=== PATIENT | female | born 1950 | race Caucasian/White ===

== ENCOUNTER → 2017-09-22 12:03 | Outpatient (CLI) | payer MEDICARE, OTHER, SELFPAY ==
--- NOTE | 2017-09-22 | DI.MG.S_ITS ---
BILATERAL DIGITAL SCREENING MAMMOGRAM 3D/2D WITH CAD: 09/22/2017 CLINICAL: Routine screening. Family history of breast cancer. Comparison is made to exams dated: 08/20/2016 mammogram, 02/22/2014 mammogram, and 12/24/2011 mammogram - [facility]. There are scattered fibroglandular elements in both breasts. Current study was also evaluated with a Computer Aided Detection (CAD) system. There is a biopsy clip in the right breast. No significant masses, calcifications, or other findings are seen in either breast. There has been no significant interval change. IMPRESSION: NEGATIVE There is no mammographic evidence of malignancy. A 1 year screening mammogram is recommended. This exam was interpreted at Station ID: [id number]. NOTE: For mammograms, a report in lay terms will be sent to the patient. Approximately 15% of breast malignancies will not be visualized mammographically. In the management of a palpable breast mass, a negative mammogram must not discourage biopsy of a clinically suspicious lesion. Electronically Signed By: Ras dubois/joanne:09/23/2017 20:25:00 copy to: Patricio Carreno letter sent: Normal Exam ACR BI-RADS Category 1: Negative 3341F
== END ==
PROVIDERS: PCP Family Medicine; Visit Provider Family Medicine
DX: Z12.31 Encounter for screening mammogram for malignant neoplasm of breast (principal); Z80.3 Family history of malignant neoplasm of breast
CPT/HCPCS: 77063; 77067

== ENCOUNTER → 2018-08-04 14:52 | Outpatient (ROUT) | payer MEDICARE, OTHER, SELFPAY ==
[2018-08-04 15:19] LABS: Influenza A and B by PCR Rapid Negative (Negative)
== END ==
PROVIDERS: PCP Family Medicine; Visit Provider Family Medicine
DX: R50.9 Fever, unspecified (principal)
CPT/HCPCS: 87400

== ENCOUNTER 2018-09-20 19:46 | Emergency (ER) | payer MEDICARE, OTHER, SELFPAY ==
--- NOTE | 2018-09-20 19:54 | DI.RAD.S_ITS ---
PROCEDURE: XR CHEST 1V INDICATIONS: chest heaviness/palpatations TECHNIQUE: One view of the chest was acquired. COMPARISON: None. FINDINGS: Surgical changes and devices: None. Lungs and pleura: Lungs are clear. No pleural effusions or pneumothorax. Mediastinum: Mediastinal contours appear normal. Heart size is normal. Bones and chest wall: No suspicious bony lesions. Overlying soft tissues appear unremarkable. IMPRESSION: No acute cardiopulmonary findings. Dictated by: Abbie Dotson M.D. on 09/20/2018 at 19:51 Approved by: Abbie Dotson M.D. on 09/20/2018 at 19:51
[2018-09-20 20:20] VITALS: BP 132/76; PULSE 68; RESP 15; O2SAT 97
[2018-09-20 20:26] LABS: Add Manual Diff / Slide Review NO; Basophils Absolute Auto 0 /uL (0-100); Basophils Percent Auto 0.3 % (0-2); Eosinophils Absolute Auto 300 /uL (0-450); Eosinophils Percent Auto 3.7 % (2-4); Hematocrit 39.5 % (36-46); Hemoglobin 13.2 g/dL (12.0-16.0); Lymphocytes Absolute Auto 2100 /uL (1100-4500); Lymphocytes Percent Auto 28.2 % (25-40); Mean Corpuscular HGB Conc 33.4 % (30-36); Mean Corpuscular Hemoglobin 30.7 PG (26-34); Mean Corpuscular Volume 91.7 fL (80-100); Monocytes Absolute Auto 600 /uL (0-900); Monocytes Percent Auto 7.9 % (3-14); Neutrophils Absolute Auto 4400 /uL (1500-7000); Neutrophils Percent Auto 59.9 % (50-75); Platelet Count 236 X10^3/uL (150-400); Red Blood Cell Count 4.31 X10^6/uL (4.0-5.2); Red Cell Distribution Width 14.1 % (11.6-14.8); White Blood Cell Count 7.3 X10^3/uL (4.5-11.0)
[2018-09-20 20:35] LABS: Alanine Aminotransferase 15 IU/L (9-52); Albumin 3.9 g/dL (3.5-5.0); Albumin Globulin Ratio 1.4 (1.0-2.8); Alkaline Phosphatase 71 U/L (38-126); Aspartate Aminotransferase 21 IU/L (14-36); BUN Creatinine Ratio 31.3 (6-22); Bilirubin Total 0.7 mg/dL (0.2-1.3); Blood Urea Nitrogen 25 mg/dL (7-17); Calcium 9.1 mg/dL (8.4-10.2); Carbon Dioxide 30 mmol/L (22-32); Chloride 100 mmol/L (98-107); Creatine Kinase 85 U/L (30-135); Estimated Glomerular Filt Rate > 60.0 mL/min (>60); Globulin 2.7 g/dL (1.7-4.1); Glucose 157 mg/dL (80-110); HEMOLYSIS < 15 (0-50); Potassium 3.7 mmol/L (3.4-5.1); Sodium 137 mmol/L (137-145); Total Protein 6.6 g/dL (6.3-8.2)
[2018-09-20] MEDS: ASPIRIN 81 MG TAB 324 MG PO (20:41)
--- NOTE | 2018-09-20 20:41 | ED.CHESTPAIN ---
HPI - Chest Pain General Chief Complaint: Chest Pain Stated Complaint: IRREGULAR HEARTRATE Time Seen by Provider: 09/20/18 19:50 Source: patient and family Mode of arrival: ambulatory Limitations: no limitations History of Present Illness HPI narrative: 67-year-old female nonsmoker with benign medical history presents with a chief complaint of waxing waning episodes of anterior chest pressure for the past 3-4 days. She states it is pressure-like and moderate in intensity. She denies any radiation of her discomfort. Her symptoms worsened when he lays flat improves when she stands up. 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 She denies any history of blood clot, cancer, recent travel surgery or injury. MD complaint: chest pain Onset (ago): day(s) Duration: intermittent Pain location: substernal Severity: mild Quality: aching Pain radiation: none Relieving factors: leaning forward Exacerbating factors: supine Context: recent illness Treatments prior to arrival chest pain: none Related Data On Oral Contraceptives: No Home Medications Medication Instructions Recorded Confirmed MULTIVITAMIN (#DUO-KAPS) 1 cap PO #0 12/17/11 Previous Rx's Medication Instructions Recorded oxyquinoline-sod.lauryl sulfat 1 % VAGINAL 3 TIMES A WEEK #1 tube 08/03/16 [Trimo-Manzano Jellpraveen] Allergies Allergy/AdvReac Type Severity Reaction Status Date / Time No Known Drug Allergies Allergy Unverified 10/14/17 08:06 Review of Systems Constitutional Denies chills, Denies fever(s), Denies lethargy and Denies weakness Eyes Denies change in vision, Denies eye discharge, Denies irritation and Denies loss of vision ENT Ears, Nose, Mouth, and Throat: Denies change in voice, Denies neck pain and Denies sore throat Cardiovascular Reports chest pain, Denies irregular heart rhythm, Denies lightheadedness, Denies palpitations, Denies dyspnea, Denies dyspnea on exertion and Denies orthopnea Respiratory Denies cough, Denies dyspnea, Denies dyspnea on exertion and Denies wheezing Gastrointestinal Gastrointestinal: Denies abdominal pain, Denies change in bowel habits, Denies diarrhea, Denies nausea and Denies vomiting Genitourinary Denies hematuria, Denies flank pain, Denies urinary incontinence and Denies urinary urgency Musculoskeletal Denies neck pain Integumentary/Breasts Denies pruritus, Denies erythema, Denies rash and Denies wounds Neurologic Denies confusion, Denies loss of vision and Denies weakness Psychiatric Denies anxiety, Denies confusion, Denies depression, Denies homicidal ideation and Denies suicidal ideation Endocrine Denies palpitations Hematologic/Lymphatic Denies easy bruising Allergic/Immunologic Denies wheezing PFSH Social History Smoking Status: Never smoker Social History Smoking Status: Never smoker Exam Narrative Exam Narrative: GENERAL: 67F appears younger than stated age, in no significant distress HEAD: Atraumatic. Normocephalic. No temporal or scalp tenderness. EYES: Pupils equal round and reactive. Extraocular motions intact. No scleral icterus. No injection or drainage. ENT: Nose without bleeding, purulent drainage or septal hematoma. Throat without erythema, tonsillar hypertrophy or exudate. Uvula midline. Airway patent. NECK: Trachea midline. No JVD or lymphadenopathy. Supple, nontender, no meningeal signs. CARDIOVASCULAR: Regular rate and rhythm without murmurs, gallops, or rubs. RESPIRATORY: Clear to auscultation. Breath sounds equal bilaterally. No wheezes, rales, or rhonchi. GASTROINTESTINAL: Abdomen soft, non-tender, nondistended. No hepato-splenomegaly, or palpable masses. No guarding. EXTREMITIES: No clubbing, cyanosis, or edema. No joint tenderness, effusion, or edema noted. BACK: Nontender without deformity or crepitance. No flank tenderness. NEURO: AOx3. SKIN: No rash or erythema. Initial Vital Signs Initial Vital Signs: Vital Signs Pulse Rate 68 09/20/18 20:20 Respiratory Rate 15 09/20/18 20:20 Blood Pressure 132/76 09/20/18 20:20 Pulse Oximetry 97 09/20/18 20:20 Course Orders Ordered: ED Orders 09/20/18 19:54 XR chest 1V Stat EKG-12 Lead Stat 09/20/18 20:10 Complete Blood Count AUTO DIFF Stat Comprehensive Metabolic Panel Stat Troponin & CK Cardiac Panel Stat Discontinued Medications Aspirin (Aspirin Chew) 324 mg PO NOW ONE Stop: 09/20/18 20:34 Last Admin: 09/20/18 20:41 Dose: 324 mg Vital Signs - 8 hr 09/20/18 21:30 Pulse Rate 70 Respiratory Rate 17 Blood Pressure [Left Arm] 125/75 Pulse Oximetry 98 MDM - Chest Pain Lab Data Result diagrams: 09/20/18 20:10 09/20/18 20:10 Lab Results 09/20/18 09/20/18 Range/Units 20:10 20:10 WBC 7.3 (4.5-11.0) X10^3/uL RBC 4.31 (4.0-5.2) X10^6/uL Hgb 13.2 (12.0-16.0) g/dL Hct 39.5 (36-46) % MCV 91.7 (80-100) fL MCH 30.7 (26-34) PG MCHC 33.4 (30-36) % RDW 14.1 (11.6-14.8) % Plt Count 236 (150-400) X10^3/uL Neut % (Auto) 59.9 (50-75) % Lymph % (Auto) 28.2 (25-40) % [place] % (Auto) 7.9 (3-14) % Eos % (Auto) 3.7 (2-4) % Baso % (Auto) 0.3 (0-2) % Neut # (Auto) 4400 (6099-7084) /uL Lymph # (Auto) 2100 (4202-6300) /uL [place] # (Auto) 600 (0-900) /uL Eos # (Auto) 300 (0-450) /uL Baso # (Auto) 0 (0-100) /uL Sodium 137 (137-145) mmol/L Potassium 3.7 (3.4-5.1) mmol/L Chloride 100 (98-107) mmol/L Carbon Dioxide 30 (22-32) mmol/L BUN 25 H (7-17) mg/dL Creatinine 0.80 (0.52-1.04) mg/dL Estimated GFR > 60.0 (>60) mL/min BUN/Creatinine Ratio 31.3 H (6-22) Glucose 157 H (80-110) mg/dL Calcium 9.1 (8.4-10.2) mg/dL Total Bilirubin 0.7 (0.2-1.3) mg/dL AST 21 (14-36) IU/L ALT 15 (9-52) IU/L Alkaline Phosphatase 71 (38-126) U/L Total Creatine Kinase 85 (30-135) U/L CK-MB (CK-2) TNP CK-MB (CK-2) Rel Index TNP Troponin I < 0.012 (0.01-0.034) ng/mL Total Protein 6.6 (6.3-8.2) g/dL Albumin 3.9 (3.5-5.0) g/dL Globulin 2.7 (1.7-4.1) g/dL Albumin/Globulin Ratio 1.4 (1.0-2.8) Discharge Plan Departure Patient Disposition: Home Clinical Impression: Atypical chest pain Discharge Date/Time: 09/20/18 22:10 Interventions: ED Discharge Assessment Last Done: 09/20/18 22:08 Instructions: DI for Atypical Chest Pain Activity Restrictions/Additional Instructions: *You have been diagnosed with [atypical chest pain. EKG blood work and story are not consistent with cardiac disease] *What to do: *Take medications as directed *Follow up with your primary care provider in 2-3 days, call for an appointment. Let them know you were seen in the Emergency Department and that we ask that you be seen in follow up *Return to ER if you should have any new, worsening or concerning symptoms Prescriptions: No Action MULTIVITAMIN (#DUO-KAPS) 1 cap PO Qty: 0 RF: 0 oxyquinoline-sod.lauryl sulfat [Trimo-Manzano Jelly] 113.4 GM gel 1 % Vaginal 3 TIMES A WEEK Qty: 1 RF: 0 Referrals: Patricio Carreno MD [Primary Care Provider] -
[2018-09-20 20:46] LABS: Troponin I < 0.012 ng/mL (0.01-0.034)
[2018-09-20 21:30] VITALS: BP 125/75; PULSE 70; RESP 17; O2SAT 98
== END 2018-09-20 22:10 | disposition home or self-care (01) ==
PROVIDERS: Emergency Provider Emergency Medicine; PCP Family Medicine
DX: R07.89 Other chest pain (principal)
CPT/HCPCS: 36591; 71045; 80053; 82550; 84484; 85025; 93005; 99282; 99285

== ENCOUNTER → 2018-09-26 10:21 | Outpatient (CLI) | payer MEDICARE, OTHER, SELFPAY ==
--- NOTE | 2018-09-26 | DI.MG.S_ITS ---
BILATERAL DIGITAL SCREENING MAMMOGRAM 3D/2D WITH CAD: 09/26/2018 CLINICAL: Routine screening. Family history of breast cancer. Comparison is made to exams dated: 09/22/2017 mammogram, 08/20/2016 mammogram, and 02/22/2014 mammogram - [facility]. There are scattered fibroglandular elements in both breasts. Current study was also evaluated with a Computer Aided Detection (CAD) system. There are a grouped heterogeneous calcifications in the right breast at 12 o'clock anterior depth. No other significant masses, calcifications, or other findings are seen in either breast. IMPRESSION: INCOMPLETE: NEEDS ADDITIONAL IMAGING EVALUATION The grouped heterogeneous calcifications in the right breast are indeterminate. Additional views are recommended. This exam was interpreted at Station ID: [id number]. NOTE: For mammograms, a report in lay terms will be sent to the patient. Approximately 15% of breast malignancies will not be visualized mammographically. In the management of a palpable breast mass, a negative mammogram must not discourage biopsy of a clinically suspicious lesion. Electronically Signed By: Heydi levy/joanne:09/26/2018 12:48:13 letter sent: Additional Imaging Needed ACR BI-RADS Category 0: Incomplete 3340F
== END ==
PROVIDERS: PCP Family Medicine; Visit Provider Family Medicine
DX: Z12.31 Encounter for screening mammogram for malignant neoplasm of breast (principal); Z80.3 Family history of malignant neoplasm of breast; R92.8 Other abnormal and inconclusive findings on diagnostic imaging of breast
CPT/HCPCS: 77063; 77067

== ENCOUNTER → 2018-10-12 14:40 | Outpatient (CLI) | payer MEDICARE, OTHER, SELFPAY ==
--- NOTE | 2018-10-12 14:43 | DI.US.S_ITS ---
LIMITED ULTRASOUND OF RIGHT BREAST: 10/12/2018 CLINICAL: Additional evaluation requested from prior study. Comparison is made to exams dated: 10/12/2018 mammogram, 09/26/2018 mammogram, 09/22/2017 mammogram, 08/20/2016 mammogram, and 02/22/2014 mammogram - [facility]. Color flow and real-time ultrasound of the right breast 10-12 o'clock region were performed. Pinon scale images of the real-time examination were reviewed. There is a 1.2 x 0.8 x 0.6 cm oval indistinct hypoechoic mass with internal echogenic foci consistent with calcifications in the right breast at 11:00 position 3 cm from the nipple. This mass demonstrates peripheral vascularity but no internal vascularity on Doppler ultrasound. This appears to correlate with the calcifications seen on comparison exam. There is mild diffuse retroareolar ductal ectasia, without focal ectasia or intraluminal mass. Targeted ultrasound of the right axilla demonstrates no right axillary lymphadenopathy. IMPRESSION: SUSPICIOUS OF MALIGNANCY 1) 1.2 x 0.8 x 0.6 cm oval indistinct hypoechoic mass in the right breast at 11:00 position 3 cm from the nipple is at low suspicion for malignancy. An ultrasound guided biopsy is recommended. 2) Targeted ultrasound of the right axilla demonstrates no right axillary lymphadenopathy. These results and recommendations were discussed with the patient at the time of the exam by the [facility] Radiologist Dr. Chris Kelly in person. This exam was interpreted at Station ID: [id number]. Electronically Signed By: Scotty Haile M.D. ecl/:10/12/2018 16:01:13 letter sent: Biopsy Required Ultrasound BI-RADS: 4a Suspicious abnormality - low suspicion for malignancy
--- NOTE | 2018-10-12 14:43 | DI.MG.S_ITS ---
UNILATERAL RIGHT DIGITAL DIAGNOSTIC MAMMOGRAM 3D/2D WITH ADDITIONAL VIEWS: 10/12/2018 CLINICAL: Additional evaluation requested from prior study. Comparison is made to exams dated: 09/26/2018 mammogram, 09/22/2017 mammogram, and 08/20/2016 mammogram - [facility]. The tissue of right breast is heterogeneously dense. This may lower the sensitivity of mammography. Previously identified grouped heterogeneous calcifications in the right breast at 12 o'clock anterior depth described on comparison diagnostic mammogram of 09/26/18 localizes closer to 11 o'clock position anterior depth. These measure 1.3 x 0.8 x 0.8 cm in greatest extent. A majority of these calcifications appear stable to comparison exam of 02/22/19, and appear to be present with an island of fibroglandular tissue. IMPRESSION: INCOMPLETE: NEEDS ADDITIONAL IMAGING EVALUATION Previously identified grouped heterogeneous calcifications in the right breast at 12 o'clock anterior depth described on comparison diagnostic mammogram of 09/26/18 localizes closer to 11 o'clock position anterior depth. These measure 1.3 x 0.8 x 0.8 cm in greatest extent. A majority of these calcifications appear stable to comparison exam of 02/22/19, and appear to be present with an island of fibroglandular tissue. A targeted ultrasound is recommended for further evaluation. This exam was interpreted at Station ID: [id number]. NOTE: For mammograms, a report in lay terms will be sent to the patient. Approximately 15% of breast malignancies will not be visualized mammographically. In the management of a palpable breast mass, a negative mammogram must not discourage biopsy of a clinically suspicious lesion. Electronically Signed By: Scotty Haile M.D. ecl/:10/12/2018 15:50:11 ACR BI-RADS Category 0: Incomplete 3340F
== END ==
PROVIDERS: Family Provider Family Medicine; PCP Family Medicine
DX: R92.8 Other abnormal and inconclusive findings on diagnostic imaging of breast (principal); R92.1 Mammographic calcification found on diagnostic imaging of breast; N63.11 Unspecified lump in the right breast, upper outer quadrant
CPT/HCPCS: 76642; 77065; G0279

== ENCOUNTER → 2018-11-02 09:10 | Outpatient (CLI) | payer MEDICARE, OTHER, SELFPAY ==
--- NOTE | 2018-11-02 | PATH_ITS ---
[facility] Accession Number: [id number] . 01 Material submitted: . breast - RIGHT BREAST MASS . 01 Clinical history: . RIGHT BREAST MASS . 01 Diagnosis: Right Breast Mass, Biopsy: Blood and breast parenchyma with stromal fibrosis and fibroadenomatoid change with associated microcalcifications. Background breast with rare microcysts and apocrine metaplasia. Focal calcifications within the media of vessels are also present. Negative for atypia, carcinoma in situ, and invasive malignancy. MRV/11/06/2018 . 01 Electronically signed: . Dayana Bella MD, Pathologist NPI- [id number] . 01 Gross description: . Received one formalin-filled container labeled with the patient's name and labeled RT breast. The specimen is received with a plastic filter in container, sample loose in container and consists of multiple fragments of yellow-aquino tissue and blood which measure 1.0 x 1.0 x 0.5 cm in aggregate. The specimen is filtered, wrapped, and entirely submitted in one cassette. Collection time and date per container: 11-02-18 at 10:53 a.m. Total fixation time: 12 hours, up to 24. ([id number]) /FRR . 01 Microscopic: . Deeper levels examined. . 01 Pathologist provided ICD-10: N63.10 . 01 CPT . 885244 [facility]formed at: [facility] [address] [place] [address], [place], [place] [id number] MD Ihsan Henry MD Phone: [phone]
--- NOTE | 2018-11-02 | DI.MG.S_ITS ---
UNILATERAL RIGHT DIGITAL DIAGNOSTIC MAMMOGRAM POST-NEEDLE BIOPSY: 11/02/2018 CLINICAL: Right breast mass. Comparison is made to exams dated: 10/12/2018 mammogram, 09/26/2018 mammogram, and 09/22/2017 mammogram - [facility]. The tissue of right breast is heterogeneously dense. This may lower the sensitivity of mammography. There is a biopsy clip in the right breast at the biopsy site. IMPRESSION: POST PROCEDURE MAMMOGRAM FOR MARKER PLACEMENT A biopsy clip in the right breast at the biopsy site. This exam was interpreted at Station ID: [id number]. NOTE: For mammograms, a report in lay terms will be sent to the patient. Approximately 15% of breast malignancies will not be visualized mammographically. In the management of a palpable breast mass, a negative mammogram must not discourage biopsy of a clinically suspicious lesion. Electronically Signed By: Irais Wilson M.D. fx/:11/03/2018 10:02:10 Entry: cm - 11/03/2018 10:02:10 ACR BI-RADS Category Post-procedure mammogram for marker placement
--- NOTE | 2018-11-02 09:13 | DI.US.S_ITS ---
ULTRASOUND GUIDED BIOPSY RIGHT BREAST USING VACUUM DEVICE WITH POST MAMMOGRAPHIC AND ULTRASOUND IMAGIN11/02/2018 CLINICAL: Right breast mass. PATIENT CONSENT: Risks (minor bleeding, infection, vasovagal reaction and repeat procedure), benefits and alternatives were explained to the patient and written informed consent was obtained. Correlation is made to exams dated: 11/02/2018 mammogram, 10/12/2018 ultrasound, 10/12/2018 mammogram, 09/26/2018 mammogram, 09/22/2017 mammogram, and 08/20/2016 mammogram - [facility]. An ultrasound guided biopsy using real-time ultrasound was performed for the oval mass located in the right breast at 12 o'clock middle depth. This was described on the previous ultrasound report. The skin was prepped in the usual manner. Local anesthetic was administered to the access site. The abnormality was approached from the lateral aspect. A 13 gauge biopsy needle was placed adjacent to the abnormality under ultrasound guidance. Once the needle was documented to be in the correct location, five specimens were obtained using the Mammotome biopsy system. Post procedure mammographic and ultrasound imaging demonstrates the clip at the targeted area. The specimens were sent to the laboratory for pathological analysis. IMPRESSION: ULTRASOUND GUIDED BIOPSY BENIGN Ultrasound guided biopsy of the mass in the right breast middle depth was successful. Pathology indicates benign fibroadenomatoid change, and stromal fibrosis with calcifications and no atypia present. Background breast wit mild apocrine metaplasia (AM), and rare microcysts. Pathology results are concordant with imaging findings. Return to annual mammogram screening schedule is recommended. This exam was interpreted at Station ID: [id number]. Irais Luke M.D. fx,aty/:11/07/2018 19:21:13
== END ==
PROVIDERS: PCP Family Medicine
DX: N60.31 Fibrosclerosis of right breast (principal); N60.81 Other benign mammary dysplasias of right breast
CPT/HCPCS: 19083; 77065

== ENCOUNTER → 2019-01-05 09:12 | Outpatient (CLI) | payer MEDICARE, OTHER, SELFPAY ==
[2019-01-05 09:58] LABS: Add Manual Diff / Slide Review NO; Basophils Absolute Auto 100 /uL (0-100); Basophils Percent Auto 1.3 % (0-2); Eosinophils Absolute Auto 200 /uL (0-450); Eosinophils Percent Auto 4.1 % (2-4); Hematocrit 41.6 % (36-46); Hemoglobin 13.9 g/dL (12.0-16.0); Lymphocytes Absolute Auto 1900 /uL (1100-4500); Lymphocytes Percent Auto 34.6 % (25-40); Mean Corpuscular HGB Conc 33.5 % (30-36); Mean Corpuscular Hemoglobin 30.6 PG (26-34); Mean Corpuscular Volume 91.5 fL (80-100); Monocytes Absolute Auto 600 /uL (0-900); Monocytes Percent Auto 10.2 % (3-14); Neutrophils Absolute Auto 2800 /uL (1500-7000); Neutrophils Percent Auto 49.8 % (50-75); Platelet Count 254 X10^3/uL (150-400); Red Blood Cell Count 4.54 X10^6/uL (4.0-5.2); Red Cell Distribution Width 13.4 % (11.6-14.8); White Blood Cell Count 5.6 X10^3/uL (4.5-11.0)
[2019-01-05 10:31] LABS: BUN Creatinine Ratio 27.1 (6-22); Blood Urea Nitrogen 19 mg/dL (7-17); Calcium 9.4 mg/dL (8.4-10.2); Carbon Dioxide 34 mmol/L (22-32); Chloride 99 mmol/L (98-107); Cholesterol 154 mg/dL (140-199); Estimated Glomerular Filt Rate > 60.0 mL/min (>60); Glucose 90 mg/dL (80-110); HDL Cholesterol 51 mg/dL (40-60); HEMOLYSIS < 15 (0-50); LDL Cholesterol Calculated 83 mg/dL (<100); Magnesium 2.2 mg/dL (1.6-2.3); Potassium 4.3 mmol/L (3.4-5.1); Sodium 138 mmol/L (137-145); Triglycerides 101 mg/dL (35-150)
== END ==
PROVIDERS: PCP Family Medicine; Visit Provider Internal Medicine Cardiovascular Disease
DX: Z00.00 Encounter for general adult medical examination without abnormal findings (principal); I49.3 Ventricular premature depolarization; R07.9 Chest pain, unspecified
CPT/HCPCS: 36415; 80048; 80061; 83735; 85025

== ENCOUNTER → 2019-11-19 12:37 | Outpatient (CLI) | payer MEDICARE, OTHER, SELFPAY | PROVIDERS: PCP Family Medicine | DX: Z13.820 Encounter for screening for osteoporosis (principal); M85.851 Other specified disorders of bone density and structure, right thigh; Z78.0 Asymptomatic menopausal state | CPT/HCPCS: 77080 ==

== ENCOUNTER → 2019-11-30 08:09 | Outpatient (CLI) | payer MEDICARE, OTHER, SELFPAY ==
--- NOTE | 2019-11-30 08:11 | DI.MG.S_ITS ---
BILATERAL DIGITAL SCREENING MAMMOGRAM 3D/2D WITH CAD: 11/30/2019 CLINICAL: Routine screening. Family history of breast cancer. Comparison is made to exams dated: 09/26/2018 mammogram, 09/22/2017 mammogram, and 08/20/2016 mammogram - [facility]. The tissue of both breasts is heterogeneously dense. This may lower the sensitivity of mammography. Current study was also evaluated with a Computer Aided Detection (CAD) system. There are benign vascular calcifications in both breasts. No significant masses, calcifications, or other findings are seen in either breast. There has been no significant interval change. IMPRESSION: BENIGN There is no mammographic evidence of malignancy. A 1 year screening mammogram is recommended. This exam was interpreted at Station ID: [id number]. NOTE: For mammograms, a report in lay terms will be sent to the patient. Approximately 15% of breast malignancies will not be visualized mammographically. In the management of a palpable breast mass, a negative mammogram must not discourage biopsy of a clinically suspicious lesion. Electronically Signed By: Abbie buchanan/joanne:11/30/2019 10:12:18 copy to: SHARON DALE letter sent: Normal Exam ACR BI-RADS Category 2: Benign Finding(s) 3342F
== END ==
PROVIDERS: PCP Family Medicine
DX: Z12.31 Encounter for screening mammogram for malignant neoplasm of breast (principal); Z80.3 Family history of malignant neoplasm of breast
CPT/HCPCS: 77063; 77067

== ENCOUNTER → 2020-04-02 17:17 | Outpatient (CLI) | payer MEDICARE, OTHER, SELFPAY ==
--- NOTE | 2020-04-02 17:23 | DI.RAD.S_ITS ---
PROCEDURE: XR KNEE RT 3V INDICATIONS: RIGHT KNEE PAIN TECHNIQUE: 3 views of the knee were acquired. COMPARISON: None. FINDINGS: Bones: No fractures or dislocations. Mild tricompartmental osteoarthritis is seen. No suspicious bony lesions. Soft tissues: Small to moderate suprapatellar joint effusion is seen. No suspicious soft tissue calcifications. IMPRESSION: No acute right knee fracture or dislocation. Mild tricompartmental osteoarthritis. Small to moderate suprapatellar joint effusion. Dictated by: Jose Raul Barcenas M.D. on 04/02/2020 at 17:42 Approved by: Jsoe Raul Barcenas M.D. on 04/02/2020 at 17:43
== END ==
PROVIDERS: Referring Provider Family Medicine; Visit Provider Family Medicine
DX: M25.561 Pain in right knee (principal); M17.11 Unilateral primary osteoarthritis, right knee; M25.461 Effusion, right knee
CPT/HCPCS: 73562

== ENCOUNTER → 2020-05-16 17:19 | Outpatient (CLI) | payer MEDICARE, OTHER, SELFPAY ==
--- NOTE | 2020-05-16 | DI.MRI.S_ITS ---
PROCEDURE: MR KNEE RT WO CON INDICATIONS: Unspecified internal derangement of right knee TECHNIQUE: Noncontrast sagittal PD fast spin echo and T2 fast spin echo with fat saturation, sagittal 3-D FLASH with fat saturation; coronal T1 spin echo and PD fast spin echo with fat saturation, and axial PD fast spin echo with fat saturation through the knee. COMPARISON: [facility] [place], CR, XR KNEE STANDING BILATERAL, 05/07/2020, 15:53. FINDINGS: Image quality: There is inhomogeneous fat saturation. Menisci: There is degenerative signal within the posterior horn of the medial meniscus with complex tearing including irregular radial tearing along the free edge as well as a horizontally oriented longitudinal tear involving the inferior articular surface. There is intrasubstance extension of the longitudinal tear to the meniscal root ligament with associated mild to moderate partial tearing but no complete rupture. There is mild peripheral extrusion of the medial meniscus. The lateral meniscus demonstrates mild degenerative signal including along the free edge in the body as well as in the meniscal root ligaments. Cruciate ligaments: The anterior and posterior cruciate ligaments appear intact. Medial structures: The medial collateral ligament appears intact. The semimembranosus tendon insertions and meniscocapsular junction appear intact. Visualized portions of the pes anserinus tendons appear intact with a small lobulated fluid collection deep to the tendons compatible with a small bursal fluid collection or ganglion cyst. Lateral structures: The lateral collateral ligament, long and short heads of the biceps femoris tendon appear intact. The popliteus tendon appears intact. Iliotibial band appears normal. Anterior structures: The quadriceps tendon appears intact. There is tendinopathy with mild intrasubstance partial tearing proximally. There is slight lateral tilt of the patella. No femoral trochlear dysplasia or ventral trochlear prominence. No edema in the infrapatellar fat pad. There is prepatellar edema as well as a loculated multi lobulated prepatellar subcutaneous fluid collection measuring up to approximately 3.7 x 1.2 x 5.2 cm likely representing bursitis. Bones and cartilage: No bone marrow contusions or fractures. There is moderate cartilage thinning in the patellofemoral compartment with chondral fissuring and associated subchondral edema most prominent along the median ridge of the patella. In the medial and lateral compartments, there is mild cartilage thinning with mild chondral fissuring associated with small foci of subchondral edema. Joint space: There is a small joint effusion. There is a small Rodriguez's cyst. Normal appearing synovial plicae are incidentally noted. IMPRESSION: 1. Complex tearing in the posterior horn of the medial meniscus including partial tearing of the meniscal root ligament. There is slight associated peripheral extrusion of the medial meniscus. 2. Tendinopathy in the proximal patellar tendon with mild intrasubstance partial tearing proximally. 3. Loculated prepatellar subcutaneous fluid collection likely representing prepatellar bursitis. 4. Small loculated fluid collection along the pes anserinus tendons consistent with a small bursal collection or ganglion cyst. 5. Mild to moderate chondral degeneration most prominent in the patellofemoral compartment along the median ridge of the patella. Dictated by: Ihsan Landis M.D. on 05/19/2020 at 8:38 Approved by: Ihsan Landis M.D. on 05/19/2020 at 9:24
== END ==
PROVIDERS: PCP Family Medicine; Referring Provider Orthopaedic Surgery; Visit Provider Orthopaedic Surgery
DX: S83.231A Complex tear of medial meniscus, current injury, right knee, initial encounter (principal); M23.91 Unspecified internal derangement of right knee; M25.461 Effusion, right knee
CPT/HCPCS: 73721

== ENCOUNTER 2020-07-15 05:52 | Emergency (ER) | payer MEDICARE, OTHER, SELFPAY ==
[2020-07-15 05:57] VITALS: BP 126/79; PULSE 78; RESP 18; TEMP 36.7; O2SAT 93; BMI 25.4
--- NOTE | 2020-07-15 06:11 | ED_ITS ---
HPI - General Adult General Chief complaint: Urogenital-Female Stated complaint: PEEING BLOOD Time Seen by Provider: 07/15/20 05:56 Source: patient Mode of arrival: Ambulatory Limitations: no limitations History of Present Illness HPI narrative: Patient is a 69-year-old female here for evaluation of a couple days of dysuria that is worsened over the past 24 hours. She also states there is blood in her urine. She states she does have some generalized malaise. Some urinary burning and frequency. She gets urinary tract infections approximately once urine she feels like this is a urinary tract infection. For her last infection she received a prescription for Bactrim which he states to care for symptoms. She denies any nausea vomiting or fevers. Related Data Home Medications Medication Instructions Recorded Confirmed MULTIVITAMIN (#DUO-KAPS) 1 cap PO #0 12/17/11 10/25/19 metoprolol succinate 25 mg 12.5 mg PO DAILY 10/25/19 10/25/19 tablet,extended release 24 hr Previous Rx's Medication Instructions Recorded sulfamethoxazole-trimethoprim 1 tab PO BID 3 Days #5 tab 07/15/20 [Bactrim DS] Allergies Allergy/AdvReac Type Severity Reaction Status Date / Time epinephrine AdvReac Heart Verified 10/25/19 08:03 racing Review of Systems Constitutional Constitutional: Denies fever(s) and Reports malaise Gastrointestinal Gastrointestinal: Denies abdominal pain, Denies nausea and Denies vomiting Genitourinary Genitourinary: Denies flank pain, Reports urinary frequency and Reports urinary urgency Genitourinary: Reports urinary frequency, Denies flank pain and Reports urinary urgency Musculoskeletal Musculoskeletal: Reports system reviewed and no additional complaints, except as documented Integumentary/Breasts Skin/Breast: Denies system reviewed and no additional complaints, except as documented Hematologic/Lymphatic On Anticoagulants: No Allergic/Immunologic Allergic/Immunologic: Reports system reviewed and no additional complaints, except as documented Patient History Medical History Breast mass, right Premature ventricular contraction on electrocardiogram Social History Smoking Status: Never smoker Smoking Status: Never smoker Exam Initial Vital Signs Initial Vital Signs: Vital Signs Temperature 98.1 F 07/15/20 05:57 Pulse Rate 78 07/15/20 05:57 Respiratory Rate 18 07/15/20 05:57 Blood Pressure 126/79 07/15/20 05:57 Pulse Oximetry 93 07/15/20 05:57 Const General: cooperative and comfortable Limitations: mental status not altered HENMT Head: normal to inspection and normocephalic Resp Effort & Inspection: normal respiratory effort Cardio Rate: regular rate Skin Lesions: no lesions Rashes: no rashes Neuro General: patient alert and patient awake Extrem General: normal to inspection and capillary refill normal Psych Appearance: grossly normal and well kempt Course Orders Ordered: ED Orders 07/15/20 06:18 Urinalysis and Microscopic Stat Urine Culture Stat Discontinued Medications Trimethoprim/Sulfamethoxazole (Trimeth/Sulfa 160/800 (Ds) Tablet) 1 tab PO NOW ONE Stop: 07/15/20 06:12 Last Admin: 07/15/20 06:18 Dose: 1 tab Documented by: Vital Signs Vital signs: Vital Signs - 8 hr 07/15/20 05:57 Temperature 98.1 F Pulse Rate 78 Respiratory Rate 18 Blood Pressure 126/79 Pulse Oximetry 93 Medical Decision Making Lab Data Lab results reviewed: Yes I reviewed the patient's lab results. Labs: Lab Results 07/15/20 Range/Units 06:18 Urine Color Red Urine Appearance Cloudy Urine pH 7.0 (4.5-8.0) Ur Specific [place] 1.025 (1.000-1.035) Urine Protein 3+ H (Negative) Urine Glucose (UA) Trace H (Negative) g/dL Urine Ketones Negative (NEGATIVE) Urine Occult Blood 3+ H (Negative) Urine Nitrate Positive H (Negative) Urine Bilirubin Negative (NEGATIVE) Urine Urobilinogen 2.0 H (0.2) E.U./dL Ur Leukocyte Esterase 1+ H (NEGATIVE) Urine RBC >100/hpf H (0-5/HPF) Urine WBC 10-30/hpf H (0-5/HPF) Ur Squamous Epith Cells 1-5 /hpf (0-5/HPF) Urine Bacteria Moderate (10-30) H (None) Ur Culture Indicated? Culture not indicate MDM Narrative Medical decision making narrative: Urinalysis and history are consistent with a urinary tract infection. She states that her prescription for Bactrim that she received last time seem to help her symptoms so we will try that again this time. She was given a 1st dose here in the emergency department and a prescr iption was sent to the pharmacy of her choice. Urine culture was pending at the time of her discharge and she was instructed we will contact her if we need to change antibiotics. She expressed understanding and agreement this plan. Discharge Plan Departure Patient Disposition: Home Clinical Impression: Urinary tract infection Instructions: DI for Urinary Tract Infection (UTI) Activity Restrictions/Additional Instructions: A prescription for antibiotics was electronically transmitted to [facility]. Your next dose will be this evening. A urine culture was pending at the time ear discharge. We will contact you if we need to change any antibiotics. Return to the emergency department for any new or worsening symptoms Prescriptions: New sulfamethoxazole-trimethoprim [Bactrim DS] 800-160 mg tablet 1 tab PO BID 3 Days Qty: 5 RF: 0 No Action MULTIVITAMIN (#DUO-KAPS) 1 cap PO Qty: 0 RF: 0 metoprolol succinate 25 mg tablet extended release 24 hr 12.5 mg PO DAILY RF: 0 Referrals: Ernesto Loya MD [Primary Care Provider] -
[2020-07-15] MEDS: TRIMETH/SULFA 160/800 (DS) TABLET 1 TAB PO (06:18)
[2020-07-15 06:29] LABS: Appearance Urine UA CLOUDY; Bilirubin Urine UA NEGATIVE (NEGATIVE); Color Urine UA RED; Glucose Urine UA TRACE g/dL (Negative); Ketones Urine UA NEGATIVE (NEGATIVE); Leukocyte Esterase Urine UA 1+ (NEGATIVE); Nitrite Urine UA POSITIVE (Negative); Occult Blood Urine UA 3+ (Negative); Protein Urine UA 3+ (Negative); Specific Gravity Urine UA 1.025 (1.000-1.035)
[2020-07-15 06:34] LABS: Bacteria Urine Moderate (10-30); RBC Urine >100/HPF (0-5/HPF); Squamous Epithelial Cell Urine 1-5 /HPF (0-5/HPF); WBC Urine 10-30/HPF (0-5/HPF)
[2020-07-15 06:43] VITALS: BP 124/68; PULSE 78; RESP 16; O2SAT 94
== END 2020-07-15 06:43 | disposition home or self-care (01) ==
PROVIDERS: Emergency Provider Emergency Medicine; PCP Family Medicine
DX: N39.0 Urinary tract infection, site not specified (principal)
CPT/HCPCS: 81001; 87077; 87086; 87186; 99283

== ENCOUNTER → 2021-02-16 10:51 | Outpatient (CLI) | payer MEDICARE, OTHER, SELFPAY ==
--- NOTE | 2021-02-16 | DI.MG.S_ITS ---
BILATERAL DIGITAL SCREENING MAMMOGRAM 3D/2D WITH CAD: 02/16/2021 CLINICAL: Routine screening. Family history of breast cancer. Comparison is made to exams dated: 11/30/2019 mammogram, 09/26/2018 mammogram, and 09/22/2017 mammogram - [facility]. The tissue of both breasts is heterogeneously dense. This may lower the sensitivity of mammography. Current study was also evaluated with a Computer Aided Detection (CAD) system. There are grouped linear pleomorphic calcifications in the right breast at 10 o'clock middle depth. These are more prominent and increased in number. No other significant masses, calcifications, or other findings are seen in either breast. IMPRESSION: INCOMPLETE: NEEDS ADDITIONAL IMAGING EVALUATION The grouped linear pleomorphic calcifications in the right breast are indeterminate. Spot magnification views are recommended. This exam was interpreted at Station ID: [id number]. NOTE: For mammograms, a report in lay terms will be sent to the patient. Approximately 15% of breast malignancies will not be visualized mammographically. In the management of a palpable breast mass, a negative mammogram must not discourage biopsy of a clinically suspicious lesion. Electronically Signed By: Robert Abbasi M.D., jr/joanne:02/16/2021 11:58:27 letter sent: Additional Imaging Needed ACR BI-RADS Category 0: Incomplete 3340F
== END ==
PROVIDERS: PCP Family Medicine; Referring Provider Family Medicine; Visit Provider Family Medicine
DX: Z12.31 Encounter for screening mammogram for malignant neoplasm of breast (principal); Z80.3 Family history of malignant neoplasm of breast
CPT/HCPCS: 77063; 77067

== ENCOUNTER → 2021-03-16 14:09 | Outpatient (CLI) | payer MEDICARE, OTHER, SELFPAY ==
--- NOTE | 2021-03-16 | DI.MG.S_ITS ---
UNILATERAL RIGHT DIGITAL DIAGNOSTIC MAMMOGRAM 3D/2D WITH ADDITIONAL VIEWS: 03/16/2021 CLINICAL: Additional evaluation requested from prior study. Comparison is made to exams dated: 02/16/2021 mammogram, 11/30/2019 mammogram, 11/02/2018 mammogram, and 10/12/2018 mammogram - [facility]. The tissue of right breast is heterogeneously dense. This may lower the sensitivity of mammography. There are stable grouped linear pleomorphic calcifications in the right breast at 10 o'clock middle depth. No other significant masses or calcifications are seen in the breast. IMPRESSION: PROBABLY BENIGN The stable grouped linear pleomorphic calcifications in the right breast are probably benign. A follow-up mammogram in 6 months is recommended to demonstrate stability. This exam was interpreted at Station ID: [id number]. NOTE: For mammograms, a report in lay terms will be sent to the patient. Approximately 15% of breast malignancies will not be visualized mammographically. In the management of a palpable breast mass, a negative mammogram must not discourage biopsy of a clinically suspicious lesion. Electronically Signed By: Robert Abbasi M.D., jr/joanne:03/16/2021 14:40:28 letter sent: Followup Recommended ACR BI-RADS Category 3: Probably benign 3343F
== END ==
PROVIDERS: PCP Family Medicine; Referring Provider Obstetrics & Gynecology; Visit Provider Obstetrics & Gynecology
DX: R92.8 Other abnormal and inconclusive findings on diagnostic imaging of breast (principal)
CPT/HCPCS: 77065; G0279

== ENCOUNTER → 2021-03-16 14:10 | Outpatient (CLI) | payer MEDICARE, OTHER, SELFPAY | PROVIDERS: PCP Family Medicine; Referring Provider Obstetrics & Gynecology; Visit Provider Obstetrics & Gynecology | DX: M85.851 Other specified disorders of bone density and structure, right thigh (principal) | CPT/HCPCS: 77080 ==

== ENCOUNTER → 2021-04-20 10:19 | Outpatient (CLI) | payer MEDICARE, OTHER, SELFPAY ==
[2021-04-20 12:27] LABS: Vitamin D 25 Hydroxy (D3) 39.9 ng/mL (30.0-100.0)
== END ==
PROVIDERS: PCP Family Medicine; Referring Provider Obstetrics & Gynecology; Visit Provider Obstetrics & Gynecology
DX: M85.80 Other specified disorders of bone density and structure, unspecified site (principal)
CPT/HCPCS: 36415; 82306

== ENCOUNTER → 2021-05-26 16:38 | Outpatient (CLI) | payer MEDICARE, OTHER, SELFPAY ==
--- NOTE | 2021-05-26 | DI.RAD.S_ITS ---
PROCEDURE: XR FINGER LT MIN 2V INDICATIONS: left thumb pain TECHNIQUE: AP hand, 2 views of the 1st finger(s) acquired. COMPARISON: None. FINDINGS: Bones: No fractures or dislocations. No suspicious bony lesions. Polyarticular joint space narrowing with periarticular osteophyte formation, severe involving the 1st CMC joint. Juxta-articular lucencies are present involving the lunate, the 1st CMC joint, the 2nd MCP joint and several interphalangeal joints. Soft tissues: No suspicious soft tissue calcifications. IMPRESSION: Diffuse joint degeneration, severe involving the 1st CMC joint and multiple juxta-articular lucencies consistent with subchondral cystic change versus bony erosions. Dictated by: Tariq Hanks [facility] Interpreted: Jose Raul Barcenas MD on 05/26/2021 at 16:59 Transcribed by: ISAMAR on 05/26/2021 at 17:00 Approved by: Jose Raul Barcenas M.D. on 05/26/2021 at 17:34
== END ==
PROVIDERS: PCP Family Medicine; Referring Provider Family Medicine; Visit Provider Family Medicine
DX: M18.12 Unilateral primary osteoarthritis of first carpometacarpal joint, left hand (principal); M79.645 Pain in left finger(s)
CPT/HCPCS: 73140

== ENCOUNTER → 2021-09-22 08:50 | Outpatient (CLI) | payer MEDICARE, OTHER, SELFPAY ==
--- NOTE | 2021-09-22 | DI.MG.S_ITS ---
UNILATERAL RIGHT DIGITAL DIAGNOSTIC MAMMOGRAM 3D/2D SHORT-TERM FOLLOW-UP: 09/22/2021 CLINICAL: Short term follow up. Comparison is made to exams dated: 03/16/2021 mammogram, 02/16/2021 mammogram, 11/30/2019 mammogram, 11/02/2018 mammogram, 10/12/2018 mammogram, and 09/26/2018 mammogram - [facility]. The tissue of right breast is heterogeneously dense. This may lower the sensitivity of mammography. There are stable grouped linear pleomorphic calcifications in the right breast at 10 o'clock middle depth. Biopsy clip in the right breast. No other significant masses or calcifications are seen in the breast. IMPRESSION: PROBABLY BENIGN The stable grouped linear pleomorphic calcifications in the right breast resemble vascular calcifications and are probably benign. A follow-up mammogram in 6 months is recommended to demonstrate stability. Patient will be due for left breast mammogram at that time. Based on the Tyrer Cuzick model (a risk assessment model) the patient's lifetime risk is 12.4% and her 10 year risk is 8.6%. According to the ACR, ACS, and NCCN guidelines, an annual breast MRI exam along with mammogram is recommended if the patient's lifetime risk is 20% or greater. This exam was interpreted at Station ID: [id number]. NOTE: For mammograms, a report in lay terms will be sent to the patient. Approximately 15% of breast malignancies will not be visualized mammographically. In the management of a palpable breast mass, a negative mammogram must not discourage biopsy of a clinically suspicious lesion. Electronically Signed By: Garrett Olsen M.D. [facility] [place]09/22/2021 09:32:50 letter sent: Followup Recommended ACR BI-RADS Category 3: Probably benign 3343F
== END ==
PROVIDERS: PCP Family Medicine; Referring Provider Family Medicine; Visit Provider Family Medicine
DX: R92.8 Other abnormal and inconclusive findings on diagnostic imaging of breast (principal); R92.1 Mammographic calcification found on diagnostic imaging of breast
CPT/HCPCS: 77065; G0279

== ENCOUNTER → 2022-05-14 08:50 | Outpatient (CLI) | payer MEDICARE, OTHER, SELFPAY ==
--- NOTE | 2022-05-14 08:55 | DI.MG.S_ITS ---
BILATERAL DIGITAL DIAGNOSTIC MAMMOGRAM 3D/2D: 05/14/2022 CLINICAL: Patient returns for 6 month follow up on right breast calcifications. Due for bilateral. Family history of breast cancer. Comparison is made to exams dated: 09/22/2021 mammogram, 03/16/2021 mammogram, 02/16/2021 mammogram, 11/30/2019 mammogram, and 09/26/2018 mammogram - [facility]. There are scattered areas of fibroglandular density in both breasts (category b / 25%-50% glandular tissue). There are stable fine heterogeneous calcifications in the right breast at 10 o'clock middle depth. No other significant masses, calcifications, or other findings are seen in either breast. Mammograms are otherwise stable. IMPRESSION: PROBABLY BENIGN The stable fine heterogeneous calcifications in the right breast most likely are vascular calcifications or sclerosing adenosis and is probably benign. A follow-up right mammogram in 6 months is recommended to demonstrate stability. Left mammogram is stable. Findings and recommendations were conveyed to the patient at time of exam. Based on the Tyrer Cuzick model (a risk assessment model) the patient's lifetime risk is 7.9% and her 10 year risk is 5.9%. According to the ACR, ACS, and NCCN guidelines, an annual breast MRI exam along with mammogram is recommended if the patient's lifetime risk is 20% or greater. This exam was interpreted at Station ID: [id number]. NOTE: For mammograms, a report in lay terms will be sent to the patient. Approximately 15% of breast malignancies will not be visualized mammographically. In the management of a palpable breast mass, a negative mammogram must not discourage biopsy of a clinically suspicious lesion. Electronically Signed By: Heydi levy/:05/14/2022 09:28:19 letter sent: Followup Recommended ACR BI-RADS Category 3: Probably benign [id number]
== END ==
PROVIDERS: PCP Family Medicine; Referring Provider Obstetrics & Gynecology; Visit Provider Obstetrics & Gynecology
DX: R92.8 Other abnormal and inconclusive findings on diagnostic imaging of breast (principal); R92.1 Mammographic calcification found on diagnostic imaging of breast
CPT/HCPCS: 77066; G0279

== ENCOUNTER → 2022-11-11 08:48 | Outpatient (CLI) | payer MEDICARE, OTHER, SELFPAY ==
--- NOTE | 2022-11-11 08:49 | DI.MG.S_ITS ---
UNILATERAL RIGHT DIGITAL DIAGNOSTIC MAMMOGRAM 3D/2D SHORT-TERM FOLLOW-UP: 11/11/2022 CLINICAL: Short term follow up of the right breast. Comparison is made to exams dated: 05/14/2022 mammogram, 09/22/2021 mammogram, and 03/16/2021 mammogram - [facility]. There are scattered areas of fibroglandular density in the right breast (category b / 25%-50% glandular tissue). Right breast upper outer quadrant calcifications are stable since 03/16/2021. No other significant masses or calcifications are seen in the breast. IMPRESSION: PROBABLY BENIGN Right breast upper outer quadrant calcifications, stable since 03/16/2021. Findings are probably benign. Follow-up mammogram in 6 months (April 2023) is recommended to demonstrate 2 year stability. Patient will be due for left breast mammogram at that time. Findings and recommendations were conveyed to the patient at the time of imaging completion. Based on the Tyrer Cuzick model (a risk assessment model) the patient's lifetime risk is 7.4% and her 10 year risk is 6.1%. According to the ACR, ACS, and NCCN guidelines, an annual breast MRI exam along with mammogram is recommended if the patient's lifetime risk is 20% or greater. This exam was interpreted at Station ID: [id number]. NOTE: For mammograms, a report in lay terms will be sent to the patient. Approximately 15% of breast malignancies will not be visualized mammographically. In the management of a palpable breast mass, a negative mammogram must not discourage biopsy of a clinically suspicious lesion. Electronically Signed By: Barb morris/:11/11/2022 09:30:59 letter sent: Followup Recommended ACR BI-RADS Category 3: Probably benign [id number]
== END ==
PROVIDERS: PCP Family Medicine; Referring Provider Obstetrics & Gynecology; Visit Provider Obstetrics & Gynecology
DX: R92.8 Other abnormal and inconclusive findings on diagnostic imaging of breast (principal); R92.1 Mammographic calcification found on diagnostic imaging of breast
CPT/HCPCS: 77065; G0279

== ENCOUNTER → 2022-12-30 08:51 | Outpatient (CLI) | payer MEDICARE, OTHER, SELFPAY ==
--- NOTE | 2022-12-30 | DI.MG.S_ITS ---
UNILATERAL LEFT DIGITAL DIAGNOSTIC MAMMOGRAM 3D/2D: 12/30/2022 CLINICAL: Diffuse left breast pain. Comparison is made to exams dated: 02/16/2021 mammogram, 11/30/2019 mammogram, 09/26/2018 mammogram, and 11/11/2022 mammogram - [facility]. There are scattered areas of fibroglandular density in the left breast (category b / 25%-50% glandular tissue). No significant masses, calcifications, or other findings are seen in the breast. Benign vascular calcifications in the left breast. Diffuse left breast pain which has resolved or improved. IMPRESSION: BENIGN There is no mammographic evidence of malignancy in the left breast. Diffuse left breast pain which has resolved or improved. Exam findings were conveyed to the patient. Patient is advised to monitor for significant change. Clinical follow-up as needed. Future imaging is recommended as follows: 05/12/2023 right mammogram for previously seen calcifications. Based on the Tyrer Cuzick model (a risk assessment model) the patient's lifetime risk is 7.4% and her 10 year risk is 6.1%. According to the ACR, ACS, and NCCN guidelines, an annual breast MRI exam along with mammogram is recommended if the patient's lifetime risk is 20% or greater. This exam was interpreted at Station ID: [id number]. NOTE: For mammograms, a report in lay terms will be sent to the patient. Approximately 15% of breast malignancies will not be visualized mammographically. In the management of a palpable breast mass, a negative mammogram must not discourage biopsy of a clinically suspicious lesion. Electronically Signed By: Garrett Olsen M.D. [facility]/:12/30/2022 10:09:34 letter sent: Normal Exam ACR BI-RADS Category 2: Benign Finding(s) 3342F
== END ==
PROVIDERS: PCP Family Medicine; Referring Provider Obstetrics & Gynecology; Visit Provider Obstetrics & Gynecology
DX: N64.4 Mastodynia (principal)
CPT/HCPCS: 77065; G0279

== ENCOUNTER → 2023-03-11 10:00 | Outpatient (CLI) | payer MEDICARE, OTHER, SELFPAY ==
--- NOTE | 2023-03-11 10:01 | DI.RAD.S_ITS ---
Bone Density and Vertebral Assessment Report Name: HALEY FORMAN I Age: 72 Sex: Female Ethnicity: White Date of : 1950 Indication: osteopenia; parental hip fracture; prior fracture; prior fracture; Referring Provider: FRANCIS HENRY Study: Bone densitometry and vertebral deformity assessment were performed. Exam Date: March 11, 2023 Accession number: [id number] Bone Density: Region BMD T-score Z-score Classification AP Spine(L1, L2, L3) 0.871 -1.3 0.9 Osteopenia Femoral Neck (Left) 0.716 -1.2 0.8 Osteopenia Total Hip (Left) 0.873 -0.6 1.1 Normal Femoral Neck (Right) 0.688 -1.4 0.5 Osteopenia Total Hip (Right) 0.811 -1.1 0.6 Osteopenia Total Hip Mean 0.842 -0.9 0.9 Normal World Health Organization criteria for BMD impression classify patients as: Normal (T-score at or above -1.0), Osteopenia (T-score between -1.0 and -2.5), or Osteoporosis (T-score at or below -2.5). 10-year Fracture Risk(1): Major Osteoporotic Fracture 25% Hip Fracture 8.8% Reported Risk Factors: [place] (), Neck BMD=0.688, BMI=25.5, previous fracture, parental fracture (1) FRAX(R) Version 3.08. Fracture probability calculated for an untreated patient. Fracture probability may be lower if the patient has received treatment. Vertebral Deformity Assessment: Exam date 03/11/2023 Vertebral Level Impression T4 Mild Wedge Deformity T5 Normal T6 Normal T7 Normal T8 Normal T9 Normal T10 Normal T11 Normal T12 Normal L1 Normal L2 Normal L3 Normal L4 Normal A spine fracture indicates 5X risk for subsequent spine fracture and 2X risk for subsequent hip fracture. Previous Exams: -- Region Exam Age BMD T-score BMD Change BMD Change Date g/cm2 vs Baseline vs Previous -- AP Spine (L1-L3) 03/11/2023 72 0.871 -1.3 -0.052 (-5.6%)# -0.037 (-4.1%)# 03/16/2021 70 0.908 -1.0 -0.014 (-1.6%) -0.014 (-1.6%) 11/19/2019 69 0.923 -0.9 Total Hip(Left) 03/11/2023 72 0.873 -0.6 0.056 (6.9%)# 0.033 (4.0%)03/16/2021 70 0.839 -0.8 0.023 (2.8%) 0.023 (2.8%) 11/19/2019 69 0.817 -1.0 Total Hip(Right) 03/11/2023 72 0.811 -1.1 0.022 (2.9%)# 0.044 (5.8%)# 03/16/2021 70 0.767 -1.4 -0.022 (-2.7%) -0.022 (-2.7%) 11/19/2019 69 0.789 -1.3 -- *Denotes significance at 95% confidence level, LSC for AP Spine = 0.022 g/cm2, LSC for Total Hip = 0.027 g/cm2 Rate of change results reflect vertebral levels common to all scans # Denotes dissimilar scan types or analysis methods Impression: The patient has low bone mass, based on the Right Femoral Neck T-score. The patient has an estimated ten-year risk of hip fracture of 8.8% and an estimated ten-year risk of major fracture of 25%, based on the WHO FRAX algorithm. The patient has risk factors, including: parental hip fracture, previous fracture. No significant bone loss was observed. Patient has a Mild Wedge Deformity fracture of vertebra T4. Discussion: BONE DENSITY IS LOW AT ONE OR MORE SKELETAL SITES. THE PATIENT'S BMD AND CLINICAL RISK FACTORS CONTRIBUTE TO THIS PATIENT'S HIGH RISK OF FRACTURE. This patient's lowest T-score is low at one or more skeletal sites. It meets the World Health Organization's (WHO) criteria for low bone mass (T-score between -1.0 and -2.5). The patient's 10-year risk of hip fracture and 10 year risk of a major osteoporotic fracture as calculated by FRAX exceeds the threshold where pharmacological therapy is recommended by the National Osteoporosis Foundation (NOF). However, all treatment decisions require clinical judgment and consideration of individual patient factors, including patient preferences, comorbidities, previous drug use, risk factors not captured in the FRAX model (e.g., frailty, falls, vitamin D deficiency, increased bone turnover, interval significant decline in bone density) and possible under or overestimation of fracture risk by FRAX. The patient should follow a healthful lifestyle (good nutrition with adequate calcium and vitamin D, and appropriate weight-bearing exercise). A MILD VERTEBRAL DEFORMITY WAS SEEN. Mild vertebral deformities are difficult to differentiate with Vertebral Fracture Assessment (VFA). Follow-up lateral radiographs should be considered if the presence of a vertebral fracture would change medical management. Follow-Up: Consider a repeat BMD and Vertebral Fracture Assessment (VFA) exam in 2 years or sooner if medically necessary, to reassess this patient's status. Reported by: CUCA DUARTE M.D. on 03/11/2023 4:06:00 PM.
== END ==
LOC: RAD 10:00
PROVIDERS: PCP Family Medicine; Referring Provider Obstetrics & Gynecology; Visit Provider Obstetrics & Gynecology
DX: M85.851 Other specified disorders of bone density and structure, right thigh (principal); Z78.0 Asymptomatic menopausal state
CPT/HCPCS: 77080; 77085; 77086

== ENCOUNTER → 2023-06-21 10:14 | Outpatient (CLI) | payer MEDICARE, OTHER, SELFPAY ==
--- NOTE | 2023-06-21 10:15 | DI.MG.S_ITS ---
BILATERAL DIGITAL DIAGNOSTIC MAMMOGRAM 3D/2D SHORT-TERM FOLLOW-UP: 06/21/2023 CLINICAL: Right short term follow up. Left breast pain. Comparison is made to exams dated: 12/30/2022 mammogram, 11/11/2022 mammogram, 05/14/2022 mammogram, 09/22/2021 mammogram, 03/16/2021 mammogram, and 02/16/2021 mammogram - [facility]. There are scattered areas of fibroglandular density in both breasts (category b / 25%-50% glandular tissue). There is a stable fine calcification in the right breast at 10 o'clock middle depth. No other significant masses, calcifications, or other findings are seen in either breast. IMPRESSION: BENIGN There is no mammographic evidence of malignancy. The fine calcification in the right breast demonstrate long-term stability and are benign. These resembles vascular calcifications. No significant interval change at the left breast. Diffuse left breast pain has resolved. Exam findings were conveyed to the patient. Patient is advised to monitor for significant change. Clinical follow-up as needed. A 1 year screening mammogram is recommended. Based on the Tyrer Cuzick model (a risk assessment model) the patient's lifetime risk is 7.4% and her 10 year risk is 6.1%. According to the ACR, ACS, and NCCN guidelines, an annual breast MRI exam along with mammogram is recommended if the patient's lifetime risk is 20% or greater. This exam was interpreted at Station ID: [id number]. NOTE: For mammograms, a report in lay terms will be sent to the patient. Approximately 15% of breast malignancies will not be visualized mammographically. In the management of a palpable breast mass, a negative mammogram must not discourage biopsy of a clinically suspicious lesion. Electronically Signed By: Garrett Olsen M.D. [facility]/:06/21/2023 11:19:00 letter sent: Normal Exam ACR BI-RADS Category 2: Benign Finding(s) 3342F
== END ==
LOC: MAMMO 10:15
PROVIDERS: PCP Family Medicine; Referring Provider Obstetrics & Gynecology; Visit Provider Obstetrics & Gynecology
DX: R92.1 Mammographic calcification found on diagnostic imaging of breast (principal); N61.1 Abscess of the breast and nipple; R92.323 Mammographic fibroglandular density, bilateral breasts
CPT/HCPCS: 77066; G0279

== ENCOUNTER → 2024-05-31 07:52 | Outpatient (CLI) | payer MEDICARE, OTHER, SELFPAY ==
--- NOTE | 2024-05-31 07:53 | DI.ECHO.S_ITS ---
[facility] : : [id number] : : [place] : : [id number] : : Phone: [phone] Echocardiogram Report + + :Name: HALEY FORMAN I Study Date: 05/31/2024 Height: 69 in : :Hospital ReadingLocation: Weight: 170 lb : : Gender: Female BSA: 1.9 m2 : :: 1950 Age: 73 yrs BP: 131/82 mmHg: :Reason For Study: MURMUR : :Ordering Physician: KORTNEY, : :JACQUIE Performed By: Yuliet Lauren : :Referring: JACQUIE BELLAMY : + + Interpretation Summary 1) Normal left ventricular thickness, size, wall motion, and systolic function (EF 60-65%). 2) Normal right ventricular size and function. 3) There is mild to moderate aortic stenosis (valve area 1.3cm2, mean gradient 11mmHg, severity ratio 0.43). 4) Compared to the Echo done 11/24/2018, no significant change. Procedure: A two-dimensional transthoracic echocardiogram with color flow and Doppler was performed. The study quality was technically adequate. Comparison is made with the echocardiogram of 11/24/2018. The patient was in sinus rhythm with heart rates between 57-66 bpm during the exam. Left Ventricle: The left ventricle is normal in size and wall thickness. The ejection fraction is estimated to be 60-65%. Left ventricular systolic function appears normal without focal wall motion abnormalities. Right Ventricle: The right ventricle is normal in size and function. Atria: The left atrium is moderately dilated. Right atrial size is normal. There is no Doppler evidence for an interatrial shunt. Mitral Valve: The mitral valve leaflets appear mildly thickened, but open well. There is moderate mitral annular calcification. The mitral valve mean gradient is 2.1 mmHg. There is mild mitral regurgitation. Aortic Valve: The aortic valve is trileaflet. The aortic valve is mildly calcified. The peak aortic velocity is 2.2 m/sec. The aortic valve mean gradient is 11 mmHg. The calculated aortic valve area is 1.3 cm2. There is mild to moderate aortic stenosis. There is trace aortic regurgitation. Tricuspid Valve: The tricuspid valve leaflets are thin and pliable. There is mild tricuspid regurgitation. Pulmonary artery pressures cannot be estimated because of the lack of a measurable TR jet velocity. Pulmonic Valve: The pulmonic valve leaflets are thin and pliable; valve motion is normal. There is mild pulmonic regurgitation. Great Vessels: The aortic root is normal size. The dimensions of the ascending aorta are normal. The IVC is dilated (diameter is greater than 2.1 cm) yet it collapses greater than 50% with a sniff. This suggests a right atrial pressure of 8 mm Hg. Pericardium/ Pleura There is no pericardial effusion. There is no pleural effusion. MMode/2D Measurements & Calculations LVIDd: 5.1 cm LVOT diam: 2.0 cm LVIDs: 3.4 cm Ao root diam: 3.5 cm FS: 33.2 % asc Aorta Diam: 3.3 cm EPSS: 0.58 cm Ao Arch Diam (Prox Trans): 2.6 cm IVSd: 0.83 cm LVPWd: 0.60 cm LV max. diameter/BSA (cm/m^2): 2.7 LV sys. diameter/BSA (cm/m^2): 1.8 LA A2 area: 24.7 cm2 RA long axis: 5.7 cm LA A4 area: 24.1 cm2 RA area: 18.0 cm2 LA length (vol): 5.7 cm RA vol: 48.1 ml LA vol: 88.4 ml RA : 24.9 ml/m2 LA vol index: 45.9 ml/m2 IVC diam: 2.4 cm RVD1 (basal): 3.9 cm RVD2 (mid): 2.6 cm TAPSE: 2.9 cm Doppler Measurements & Calculations Ao V2 max: 221.4 cm/sec LVOT Max Javon: 93.1 cm/sec Ao V2 mean: 154.1 cm/sec LV V1 max P.5 mmHg Ao max P.6 mmHg LV V1 VTI: 23.4 cm Ao mean P.0 mmHg JORGE ALBERTO(I,D): 1.3 cm2 Ao V2 VTI: 54.3 cm JORGE ALBERTO(V,D): 1.3 cm2 sev ratio: 0.43 JORGE ALBERTO indexed to BSA (cm^2/m^2): 0.69 MV E max javon: 88.3 cm/sec PA V2 max: 106.5 cm/sec MV A max javon: 105.9 cm/sec PA V2 mean: 75.5 cm/sec MV E/A: 0.83 PA mean P.7 mmHg Med Peak E' Javon: 8.6 cm/sec PA pr(Accel): 35.3 mmHg E/E' med: 10.2 Lat Peak E' Javon: 8.1 cm/sec E/E' lat: 10.9 E/e' average: 10.6 MV dec time: 0.26 sec MVA(VTI): 1.8 cm2 MV V2 mean: 67.5 cm/sec SV(LVOT): 72.6 ml MV mean P.1 mmHg MV V2 VTI: 40.3 cm Reading Physician:[id number] PM
== END ==
PROVIDERS: PCP Family Medicine; Referring Provider Internal Medicine Cardiovascular Disease; Visit Provider Internal Medicine Cardiovascular Disease
DX: I08.3 Combined rheumatic disorders of mitral, aortic and tricuspid valves (principal); R01.1 Cardiac murmur, unspecified
CPT/HCPCS: 93306

== ENCOUNTER → 2024-06-21 11:04 | Outpatient (CLI) | payer MEDICARE, OTHER, SELFPAY ==
--- NOTE | 2024-06-21 11:05 | DI.MG.S_ITS ---
MM screening mammo BI: 06/21/2024. BI-RADS: 2 CLINICAL: 73-year old female for bilateral screening mammogram. Tyrer-Cuzick lifetime risk of 7.6%. Current reported family history of breast cancer: sister. The patient had a prior left breast biopsy. PRIOR EXAMS 06/21/2023, 12/30/2022, 11/11/2022, 05/14/2022, 09/22/2021, 03/16/2021, 02/16/2021, 11/30/2019, 11/02/2018, 10/12/2018, 09/26/2018, 09/22/2017, 08/20/2016. MAMMOGRAPHY TECHNIQUE: 2D and 3D (tomosynthesis) digital mammographic views obtained, with additional images as needed for full coverage. Current study was also evaluated with a Computer Aided Detection (CAD) system. DENSITY C. The breasts are heterogeneously dense, which may obscure small masses. MAMMOGRAPHY FINDINGS Right: Biopsy marker present on the right. Typically-benign vascular calcifications noted. Left: Typically-benign vascular calcifications noted. IMPRESSION: * No evidence of malignancy with benign findings. RECOMMENDATIONS Bilateral * Annual screening mammography. OVERALL ASSESSMENT CATEGORY BI-RADS-2: Benign. [employer] recommends annual screening mammography beginning at age 40 for women with average risk of breast cancer. ELECTRONICALLY SIGNED: Garrett Olsen M.D. on 06/22/2024 at 08:34:40 AM PT Interpreting Station ID: [id number]
== END ==
PROVIDERS: PCP Family Medicine; Referring Provider Obstetrics & Gynecology; Visit Provider Obstetrics & Gynecology
DX: Z12.31 Encounter for screening mammogram for malignant neoplasm of breast (principal); Z80.3 Family history of malignant neoplasm of breast; R92.333 Mammographic heterogeneous density, bilateral breasts
CPT/HCPCS: 77063; 77067